=== PATIENT | male | born 1990 | race Hispanic/Latino ===

== ENCOUNTER 2023-10-22 11:13 | Outpatient (CLI) | payer OTHER ==
[2023-10-22] MEDS ORDERED: Iopamidol-370 76% 500 ML BOT (X-RAY USE) FS ONE (11:31)
== END 2023-10-22 11:14 | disposition home or self-care (01) ==
LOC: RAD 11:13
PROVIDERS: ATTEND Urology
DX: N32.89 Other specified disorders of bladder (principal)
CPT/HCPCS: 51600; 74430; J3490